=== PATIENT | male | born 1990 | race Caucasian/White ===

== ENCOUNTER 2018-10-07 01:30 | Emergency (ER) | payer SELFPAY ==
--- NOTE | 2018-10-07 02:25 | XRay Report ---
PROCEDURE: XR CHEST 1V AP TECHNIQUE: A portable upright view the chest was obtained. HISTORY: Chest Pain COMPARISONS: None FINDINGS: The lungs are clear. The heart size is normal. Pleural fluid is not seen. The bones and soft tissues reveal an S-shaped thoracolumbar scoliosis. IMPRESSION: No acute cardiopulmonary process.. This document is electronically signed by Bonifacio Butt MD., October 07 2018 02:22:26 AM ET
--- NOTE | 2018-10-07 02:49 | Emergency Department Report ---
- General Chief Complaint: Upper Respiratory Infection Stated Complaint: CHEST PAIN FATIGUE MILD DIARRHEA Time Seen by Provider: 10/07/18 02:45 Source: patient Mode of arrival: Ambulatory Limitations: No Limitations - History of Present Illness Initial Comments: 28-year-old -[place] male with a past medical history of stomach ulcers and scoliosis comes in for cold cough mild diarrhea and chest heaviness for 2 days. Patient has tried no [id number] medications in a couple of days. He admits to runny nose chills sneezing coughing and body aches. Patient denies any fever abdominal pain. He admits to diarrhea 2 episodes yesterday. MD Complaint: cough, rhinorrhea, other -: days(s) (wheezing2) Severity scale (0 -10): 0 Quality: other (chest congestion) Consistency: intermittent Associated Symptoms: chills, myalgias, rhinorrhea, cough, diarrhea (times 2 episodes). denies: fever Treatments Prior to Arrival: none - Related Data Previous Rx's Medication Instructions Recorded Last Taken Type Cetirizine HCl [Zyrtec] 10 mg PO QDAY #30 tablet 10/07/18 Unknown Rx Fluticasone [Flonase] 1 spray NS QDAY #1 bottle 10/07/18 Unknown Rx Allergies Allergy/AdvReac Type Severity Reaction Status Date / Time No Known Allergies Allergy Unverified 10/07/18 01:42 ED Review of Systems ROS: Stated complaint: CHEST PAIN FATIGUE MILD DIARRHEA Other details as noted in HPI Comment: All other systems reviewed and negative Constitutional: chills. denies: fever ENT: congestion, other (rhinorrhea, sneezing) Respiratory: cough Cardiovascular: denies: chest pain, palpitations Endocrine: no symptoms reported Gastrointestinal: denies: abdominal pain, nausea, diarrhea Genitourinary: denies: urgency, dysuria Musculoskeletal: denies: back pain, joint swelling, arthralgia Skin: denies: rash, lesions ED Past Medical Hx - Past Medical History Previous Medical History?: Yes Additional medical history: h/o stomach ulcers. h/o scoliosis - Surgical History Past Surgical History?: Yes Additional Surgical History: abd hernia 2010 - Social History Smoking Status: Never Smoker Substance Use Type: Marijuana - Medications Home Medications: Home Medications Medication Instructions Recorded Confirmed Last Taken Type Cetirizine HCl [Zyrtec] 10 mg PO QDAY #30 tablet 10/07/18 Unknown Rx Fluticasone [Flonase] 1 spray NS QDAY #1 bottle 10/07/18 Unknown Rx ED Physical Exam - General Limitations: No Limitations General appearance: alert, in no apparent distress - Head Head exam: Present: atraumatic, normocephalic - Eye Eye exam: Present: normal appearance - ENT ENT exam: Present: mucous membranes moist - Neck Neck exam: Present: normal inspection - Respiratory Respiratory exam: Present: normal lung sounds bilaterally. Absent: respiratory distress - Cardiovascular Cardiovascular Exam: Present: regular rate, normal rhythm. Absent: systolic murmur, diastolic murmur, rubs, gallop - GI/Abdominal GI/Abdominal exam: Present: soft, normal bowel sounds - Rectal Rectal exam: Present: deferred - Extremities Exam Extremities exam: Present: normal inspection - Back Exam Back exam: Present: normal inspection - Neurological Exam Neurological exam: Present: alert, oriented X3 - Psychiatric Psychiatric exam: Present: normal affect, normal mood - Skin Skin exam: Present: warm, dry, intact, normal color. Absent: rash ED Course Vital Signs 10/07/18 01:42 Temperature 98.1 F Pulse Rate 106 H Respiratory 18 Rate Blood Pressure 128/80 O2 Sat by Pulse 100 Oximetry ED Medical Decision Making - Radiology Data Radiology results: report reviewed Patient: ERICA ORTEGA MR#: [id number] : 1990 Acct:[id number] Age/Sex: 28 / M ADM Date: 10/07/18 Loc: ED Attending Dr: Ordering Physician: MARY DUNCAN MD Date of Service: 10/07/18 Procedure(s): XR chest 1V ap Accession Number(s): [id number] cc: ED MD PERLA Fluoro Time In Minutes: PROCEDURE: XR CHEST 1V AP TECHNIQUE: A portable upright view the chest was obtained. HISTORY: Chest Pain COMPARISONS: None FINDINGS: The lungs are clear. The heart size is normal. Pleural fluid is not seen. The bones and soft tissues reveal an S-shaped thoracolumbar scoliosis. IMPRESSION: No acute cardiopulmonary process.. This document is electronically signed by Jill Butt MD., October 07 2018 02:22:26 AM ET Transcribed By: RB Dictated By: JILL BUTT MD Electronically Authenticated By: JILL BUTT MD Signed Date/Time: 10/07/18224 DD/ 1 TD/TT: 10/07/18211 - Medical Decision Making Patient has been evaluated by this provider in fast track. Chest x-ray shows no cardiopulmonary abnormalities. Patient be discharged home with prescription for Zyrtec's and Flonase. Critical care attestation.: If time is entered above; I have spent that time in minutes in the direct care of this critically ill patient, excluding procedure time. ED Disposition Clinical Impression: Allergic rhinitis Qualifiers: Allergic rhinitis trigger: pollen Allergic rhinitis seasonality: seasonal Qualified Code(s): J30.1 - Allergic rhinitis due to pollen Disposition: DC- TO HOME OR SELFCARE Is pt being admited?: No Does the pt Need Aspirin: No Condition: Stable Instructions: Allergic Rhinitis (ED) Additional Instructions: Please take medication as prescribed. Increase her water intake advance her diet as tolerated. Follow up with her primary care provider in next 3-5 days if symptoms persist Prescriptions: Fluticasone [Flonase] 1 spray NS QDAY #1 bottle Cetirizine HCl [Zyrtec] 10 mg PO QDAY #30 tablet Referrals: [facility] [Provider Group] - 3-5 Days Forms: Work/School Release Form(ED)
[2018-10-07 03:32] VITALS: BP 116/68
== END 2018-10-07 03:00 | disposition home or self-care (01) ==
LOC: ED 01:30
DX: J30.1 Allergic rhinitis due to pollen (principal); F12.10 Cannabis abuse, uncomplicated
CPT/HCPCS: 71045; 93005; 93010; 99283

== ENCOUNTER 2018-11-09 16:28 | Emergency (ER) | payer OTHER ==
[2018-11-09 17:09] VITALS: BP 117/74
--- NOTE | 2018-11-09 17:09 | Emergency Department Report ---
Chief Complaint: Upper Respiratory Infection Stated Complaint: CHEST PAIN/LEG PAIN/N/V Time Seen by Provider: 11/09/18 17:06 - HPI History of Present Illness: pt presents with cough that began two months ago has fatigue, n/v/d, left thigh pain no fever denies CP pt was in the ED for the same sx last month ago hx of stomach ulcer, pt is on nexium has not taken it since last month PSHx of hernia repair + smoker occ drinker +marijuana MSE screening note: Focused history and physical exam performed. Due to findings the following was ordered: labs, UA, and CXR ED Disposition for MSE Condition: Stable
[2018-11-09 17:32] LABS: Basophils % (Auto) 0.5 % (0.0-1.8); Eosinophils % (Auto) 1.1 % (0.0-4.3); Hematocrit 43.5 % (35.5-45.6); Lymphocytes # (Auto) 1.8 K/mm3 (1.2-5.4); Lymphocytes % (Auto) 52.9 % (13.4-35.0); Mean Corpuscular HGB Conc 32 % (32-34); Mean Corpuscular Volume 81 fl (84-94); Monocytes # (Auto) 0.3 K/mm3 (0.0-0.8); Monocytes % (Auto) 8.4 % (0.0-7.3); Platelet Count 201 K/mm3 (140-440); Red Blood Count 5.36 M/mm3 (3.65-5.03); Red Cell Distribution Width 14.4 % (13.2-15.2)
[2018-11-09 17:57] LABS: Alanine Aminotransferase 11 units/L (7-56); Albumin 4.3 g/dL (3.9-5); BUN/Creatinine Ratio 16; Blood Urea Nitrogen 14 mg/dL (9-20); Calcium 8.7 mg/dL (8.4-10.2); Hemolysis Index 6
--- NOTE | 2018-11-09 18:45 | XRay Report ---
PROCEDURE: XR CHEST ROUTINE 2V TECHNIQUE: PA and lateral chest radiographs were obtained. HISTORY: cough COMPARISONS: None. FINDINGS: Heart: Normal. Mediastinum/Vessels: Normal. Lungs/Pleural space: No infiltrate, effusion, or pneumothorax. Bony thorax: Mild thoracic dextroscoliosis. IMPRESSION: No radiographic evidence of acute abnormality. This document is electronically signed by Jami Rasmussen MD., November 09 2018 06:43:23 PM ET
[2018-11-09 19:34] LABS: Bacteria,Urine 1+ /HPF (Negative); Bilirubin,Urine NEG (Negative); Blood,Urine NEG (Negative); Color,Urine Yellow (Yellow); Mucus,Urine 3+ /HPF
--- NOTE | 2018-11-09 21:31 | Emergency Department Report ---
ED General Adult HPI - General Chief complaint: Upper Respiratory Infection Stated complaint: CHEST PAIN/LEG PAIN/N/V Time Seen by Provider: 11/09/18 17:06 Source: patient Mode of arrival: Ambulatory Limitations: No Limitations - History of Present Illness Initial comments: pt presents with cough that began two months ago has fatigue, n/v/d, left thigh pain no fever denies CP pt was in the ED for the same sx last month ago hx of stomach ulcer, pt is on nexium has not taken it since last month PSHx of hernia repair + smoker occ drinker +marijuana Onset/Timin -: week(s) Location: chest (with cough) Radiation: non-radiation Severity scale (0 -10): 4 Quality: aching Consistency: intermittent Improves with: none Worsens with: movement Associated Symptoms: chest pain (with cough ), cough Treatments Prior to Arrival: none - Related Data Previous Rx's Medication Instructions Recorded Last Taken Type Cetirizine HCl [Zyrtec] 10 mg PO QDAY #30 tablet 10/07/18 Unknown Rx Fluticasone [Flonase] 1 spray NS QDAY #1 bottle 10/07/18 Unknown Rx Ibuprofen 800 mg PO TID PRN #30 tablet 11/09/18 Unknown Rx levoFLOXacin [Levaquin TAB] 500 mg PO QDAY 10 Days #10 tablet 11/09/18 Unknown Rx Allergies Allergy/AdvReac Type Severity Reaction Status Date / Time No Known Allergies Allergy Verified 11/09/18 16:29 ED Review of Systems ROS: Stated complaint: CHEST PAIN/LEG PAIN/N/V Other details as noted in HPI Constitutional: denies: chills, fever Eyes: denies: eye pain, eye discharge, vision change ENT: throat pain, congestion Respiratory: cough Cardiovascular: chest pain (with cough) Endocrine: no symptoms reported Gastrointestinal: denies: abdominal pain, nausea, vomiting, diarrhea Genitourinary: denies: urgency, dysuria, frequency, hematuria, discharge, testicular pain, testicular mass Musculoskeletal: other (left medial thigh pain chronic ). denies: back pain, joint swelling, arthralgia Skin: denies: rash, lesions Neurological: denies: headache, weakness, paresthesias Psychiatric: denies: anxiety, depression Hematological/Lymphatic: denies: easy bleeding, easy bruising ED Past Medical Hx - Past Medical History Additional medical history: h/o stomach ulcers. h/o scoliosis - Surgical History Additional Surgical History: abd hernia 2010 - Social History Smoking Status: Current Every Day Smoker Substance Use Type: Alcohol, Marijuana - Medications Home Medications: Home Medications Medication Instructions Recorded Confirmed Last Taken Type Cetirizine HCl [Zyrtec] 10 mg PO QDAY #30 tablet 10/07/18 Unknown Rx Fluticasone [Flonase] 1 spray NS QDAY #1 bottle 10/07/18 Unknown Rx Ibuprofen 800 mg PO TID PRN #30 tablet 11/09/18 Unknown Rx levoFLOXacin [Levaquin TAB] 500 mg PO QDAY 10 Days #10 tablet 11/09/18 Unknown Rx ED Physical Exam - General Limitations: No Limitations General appearance: alert, in no apparent distress - Head Head exam: Present: atraumatic, normocephalic - Eye Eye exam: Present: normal appearance, PERRL, EOMI Pupils: Present: normal accommodation - ENT ENT exam: Present: normal orophraynx, mucous membranes moist, TM's normal bilaterally, normal external ear exam - Neck Neck exam: Present: normal inspection, full ROM. Absent: tenderness, meningismus, lymphadenopathy, thyromegaly - Respiratory Respiratory exam: Present: normal lung sounds bilaterally, chest wall tenderness (right lateral chest wall pain with cough and palpation no swelling crepitus no ecchymosis no swelling ). Absent: respiratory distress, wheezes, rhonchi - Cardiovascular Cardiovascular Exam: Present: regular rate, normal rhythm, normal heart sounds. Absent: systolic murmur, diastolic murmur, rubs, gallop - GI/Abdominal GI/Abdominal exam: Present: soft, normal bowel sounds. Absent: distended, tenderness, guarding, rebound, rigid, bruit, hernia - Rectal Rectal exam: Present: deferred - Extremities Exam Extremities exam: Present: normal inspection, full ROM, normal capillary refill. Absent: tenderness - Back Exam Back exam: Present: normal inspection, full ROM. Absent: tenderness, CVA tenderness (R), CVA tenderness (L), muscle spasm, rash noted - Neurological Exam Neurological exam: Present: alert, oriented X3, CN II-XII intact, normal gait, reflexes normal - Psychiatric Psychiatric exam: Present: normal affect, normal mood - Skin Skin exam: Present: warm, dry, intact, normal color. Absent: rash ED Course Vital Signs 11/09/18 17:08 Temperature 98.4 F Pulse Rate 77 Respiratory 16 Rate Blood Pressure 117/74 O2 Sat by Pulse 99 Oximetry ED Medical Decision Making - Lab Data Result diagrams: 11/09/18 17:19 11/09/18 17:19 Labs 11/09/18 11/09/18 11/09/18 17:19 17:19 19:03 WBC 3.4 L RBC 5.36 H Hgb 14.0 Hct 43.5 MCV 81 L MCH 26 L MCHC 32 RDW 14.4 Plt Count 201 Lymph % (Auto) 52.9 H [place] % (Auto) 8.4 H Eos % (Auto) 1.1 Baso % (Auto) 0.5 Lymph # 1.8 [place] # 0.3 Eos # 0.0 Baso # 0.0 Seg Neutrophils % 37.1 L Seg Neutrophils # 1.3 L Sodium 141 Potassium 4.4 Chloride 103.7 Carbon Dioxide 26 Anion Gap 16 BUN 14 Creatinine 0.9 Estimated GFR > 60 BUN/Creatinine Ratio 16 Glucose 100 Calcium 8.7 Total Bilirubin 0.20 AST 13 ALT 11 Alkaline Phosphatase 48 Total Protein 7.5 Albumin 4.3 Albumin/Globulin Ratio 1.3 Lipase 32 Urine Color Yellow Urine Turbidity Slightly-cloudy Urine pH 5.0 Ur Specific [place] 1.032 H Urine Protein 30 mg/dl Urine Glucose (UA) Neg Urine Ketones Neg Urine Blood Neg Urine Nitrite Neg Urine Bilirubin Neg Urine Urobilinogen 2.0 Ur Leukocyte Esterase Sm Urine WBC (Auto) 37.0 H Urine RBC (Auto) 6.0 U Epithel Cells (Auto) 1.0 Urine Bacteria (Auto) 1+ Urine Mucus 3+ - Radiology Data Radiology results: report reviewed, image reviewed Findings [address] [address] XRay Report Signed Patient: REICA ORTEGA MR#: [id number] : 1990 Acct:[id number] Age/Sex: 28 / M ADM Date: 11/09/18 Loc: ED Attending Dr: Ordering Physician: TARIQ BOO Date of Service: 11/09/18 Procedure(s): XR chest routine 2V Accession Number(s): [id number] cc: TARIQ BOO Fluoro Time In Minutes: PROCEDURE: XR CHEST ROUTINE 2V TECHNIQUE: PA and lateral chest radiographs were obtained. HISTORY: cough COMPARISONS: None. FINDINGS: Heart: Normal. Mediastinum/Vessels: Normal. Lungs/Pleural space: No infiltrate, effusion, or pneumothorax. Bony thorax: Mild thoracic dextroscoliosis. IMPRESSION: No radiographic evidence of acute abnormality. This document is electronically signed by Jami Rasmussen MD., November 09 2018 06:43:23 PM ET Transcribed By: [facility] Dictated By: JAMI RASMUSSEN M.D. Electronically Authenticated By: JAMI RASMUSSEN M.D. Signed Date/Time: 11/09/181844 DD/ 02 TD/TT: 11/09/181802 - Medical Decision Making chest xray no opacities no infiltrates, mild scoliosis chronic, ua: noted for leuk, wbc, pt denies hematuria flow problem , no dysuria frequenc or urgency , denies sexual contact or concern for STI, upon interview, chest pain is with cough and palpation only, plan levaquin, ibuprofen follow up with pcp in 2-3 days Critical care attestation.: If time is entered above; I have spent that time in minutes in the direct care of this critically ill patient, excluding procedure time. ED Disposition Clinical Impression: Cough, Costochondral chest pain UTI (urinary tract infection) Qualifiers: Urinary tract infection type: acute cystitis Hematuria presence: without hematuria Qualified Code(s): N30.00 - Acute cystitis without hematuria Allergic rhinitis Qualifiers: Allergic rhinitis trigger: unspecified Allergic rhinitis seasonality: unspecified Qualified Code(s): J30.9 - Allergic rhinitis, unspecified Disposition: TO HOME OR SELFCARE Is pt being admited?: No Does the pt Need Aspirin: No Condition: Stable Instructions: Chest Pain (ED), Costochondritis (ED), Urinary Tract Infection in Men (ED) Prescriptions: Ibuprofen 800 mg PO TID PRN #30 tablet PRN Reason: pain fever levoFLOXacin [Levaquin TAB] 500 mg PO QDAY 10 Days #10 tablet Referrals: [facility] [Outside] - 3-5 Days Forms: Work/School Release Form(ED) Time of Disposition: 21:43
== END 2018-11-09 21:45 | disposition home or self-care (01) ==
LOC: ED 16:28
DX: M94.0 Chondrocostal junction syndrome [Tietze] (principal); J30.9 Allergic rhinitis, unspecified; N30.00 Acute cystitis without hematuria
CPT/HCPCS: 36415; 71046; 80053; 81001; 83690; 85025